=== PATIENT | female | born 2005 | race Caucasian/White ===

== ENCOUNTER 2025-03-02 14:54 | Outpatient (REF) | payer OTHER, SELFPAY ==
[2025-03-02 17:22] LABS: Glucose Negative (Negative)
[2025-03-02 17:33] LABS: C & S Indicated? Yes; RBC 0-2 HPF (0-2)
== END 2025-03-02 14:55 | disposition home or self-care (01) ==
LOC: LBN 14:54
PROVIDERS: PCP Physician Assistant; Visit Provider Physician Assistant
DX: R30.0 Dysuria (principal)
CPT/HCPCS: 87077; 81003; 81015; 87086; 87186